=== PATIENT | male | born 1980 | race Asian ===

== ENCOUNTER 2020-05-30 15:29 | Outpatient (REF) | payer MEDICAID, SELFPAY ==
[2020-05-30 17:06] LABS: Anion Gap 14 (12-20); Blood Urea Nitrogen 25 mg/dL (9-16); Carbon Dioxide 24 mmol/L (22-29); Chloride 107 mmol/L (96-108); Estimated Glomerular Filt Rate > 60; Glucose Random 137 mg/dL (60-115); Potassium 3.9 mmol/l (3.3-5.1); Sodium 141 mmol/L (135-145)
[2020-05-31 11:06] LABS: Sirolimus 5.5 ng/mL (3.0-18.0); Tacrolimus Prograf 4.9 mcg/L
== END 2020-05-30 15:30 | disposition home or self-care (01) ==
LOC: HO.LAB 15:29
PROVIDERS: Visit Provider Nurse Practitioner Family
DX: Z94.1 Heart transplant status (principal)
CPT/HCPCS: 80048; 80195; 80197

== ENCOUNTER 2020-11-29 02:07 | Outpatient (REF) | payer MEDICAID, SELFPAY ==
[2020-11-29 15:25] LABS: Anion Gap 12 (12-20); Blood Urea Nitrogen 37 mg/dL (9-16); Calcium 8.5 mg/dL (8.4-10.2); Carbon Dioxide 24 mmol/L (22-29); Chloride 104 mmol/L (96-108); Estimated Glomerular Filt Rate 51; Glucose Random 290 mg/dL (60-115); Potassium 3.9 mmol/L (3.3-5.1); Sodium 136 mmol/L (135-145)
[2020-11-30 07:51] LABS: Tacrolimus Prograf 14.1 mcg/L
== END 2020-11-29 02:08 | disposition home or self-care (01) ==
LOC: HO.LAB 02:07
PROVIDERS: PCP Internal Medicine; Visit Provider Nurse Practitioner
DX: Z94.1 Heart transplant status (principal); Z79.899 Other long term (current) drug therapy
CPT/HCPCS: 36415; 80048; 80197